=== PATIENT | female | born 1955 | race Caucasian/White ===

== ENCOUNTER → 2016-08-06 | Outpatient (CLI) | payer BC ==
[2015-11-27 10:26] VITALS: BP 144/78
[~2016-08-06] MED LIST: ASPI-482 PO; BUPR150T8 PO; CEPH500C PO; DULO30CA2 PO; ESOM40CA PO; ETOD400T PO; HYDR12.53 PO; OMEG1CAP2 PO; TRAM50TA PO; VALA1000 PO
--- NOTE | 2016-08-06 10:27 | KCIC ---
EXAM: Bone densitometry. HISTORY: Postmenopausal female presents for osteoporosis screening. FINDINGS: BMD: (g/cm2) - AP Spine Total (L1-L4): 1.600 - Total left Hip: 0.929 T-Score: - AP Spine Total (L1-L4): 5.0 - Total left Hip: -0.1 Z-Score: - AP Spine Total (L1-L4): 6.6 - Total left Hip: 1.0 World Health Organization criteria for BMD interpretation classify patients as Normal (T-score at or above -1.0), Osteopenic (T-score between -1.0 and -2.5), or Osteoporotic (T-score at or below -2.5). IMPRESSION: Normal bone mineral density. Electronically signed by: Deisy Oviedo (Aug 06, 2016 10:25:46)
== END | disposition home or self-care (01) ==
LOC: KCIC DEXA 09:22
PROVIDERS: ATTEND Family Medicine
DX: R29.890 Loss of height (principal); M85.88 Other specified disorders of bone density and structure, other site
CPT/HCPCS: 77080

== ENCOUNTER → 2016-10-08 | Outpatient (CLI) | payer BC ==
[2015-11-27 10:26] VITALS: BP 144/78
--- NOTE | 2016-10-08 10:46 | KCIC ---
Renal ultrasound Indication: Reason For Study Reason: FLANK PAIN, BILIRUB IN URINE / Spl. Instructions: / History: TECHNIQUE Multiple real-time grayscale sonographic images were obtained over the kidneys and bladder. FINDINGS The right kidney is normal in size measuring 10.8 x 4.5 x 4.5centimeters. There is no evidence for mass, hydronephrosis, or nephrolithiasis. The left kidney is normal in size measuring 10.9 x 6.4 x 5.9 centimeters. There is no evidence for mass, hydronephrosis, or nephrolithiasis. Urinary bladder is within normal limits. A gallstone is noted within the nondistended gallbladder. This is an incidental finding. IMPRESSION - Normal renal ultrasound. - Incidental note of cholelithiasis. Electronically signed by: Anthony Phillips (Oct 08, 2016 10:44:56)
--- NOTE | 2016-10-08 11:24 | KCIC ---
PROCEDURE Lumbar spine radiographs HISTORY Chronic low back pain, no recent injury COMPARISON None FINDINGS Three views of the lumbar spine are submitted. There is mild dextroscoliosis centered about L2-3. There is mild right lateral subluxation L3 relative to L4 and mild left lateral subluxation of L1 relative to L2. There is advanced degenerative disc disease at L1-L2 and also eccentric to the left at L2-3 and L3-4 and on the right at L4-5. There is multilevel spondylosis greatest at L1-2 and L2-3. Lumbar vertebral body stature is adequate. There is facet degenerative change greater inferiorly of the lumbar spine. There is atherosclerotic calcification of the abdominal aorta. IMPRESSION 1. There is multilevel lumbar degenerative disc disease and spondylosis greatest L1-L2 through L3-4. There is mild lumbar dextroscoliosis. Electronically signed by: Haroon Wilson MD (Oct 08, 2016 11:23:02)
== END | disposition home or self-care (01) ==
LOC: KCIC US 09:35
PROVIDERS: ATTEND Nurse Practitioner Family
DX: M54.5 Low back pain (principal); M51.36 Other intervertebral disc degeneration, lumbar region; M47.896 Other spondylosis, lumbar region; R10.9 Unspecified abdominal pain; K80.20 Calculus of gallbladder without cholecystitis without obstruction
CPT/HCPCS: 72100; 76770

== ENCOUNTER → 2017-01-17 | Outpatient (CLI) | payer BC ==
[2015-11-27 10:26] VITALS: BP 144/78
--- NOTE | 2017-01-17 16:24 | RAD ---
Examination: MRI of the right shoulder without contrast HISTORY: History of right shoulder pain after lifting, decreased range of motion COMPARISON: None available TECHNIQUE: Multiplanar, multisequence MR of the right shoulder were performed without contrast. FINDINGS: The long head of the biceps tendon is within the bicipital groove. The attachment of the long head of the biceps tendon to the superior labral anchor grossly appears intact. The attachment of the subscapularis tendon appears intact. There is a small focus of full-thickness tear identified in the anterior portion of the supraspinatus tendon, at its junction with the subscapularis, measuring 8.5 mm in transverse dimension with small amount of fluid extending into subacromial subdeltoid bursa. There is moderate tendinosis of the supraspinatus, infraspinatus tendon. There is increased signal identified in the superior labrum extending posteriorly with a small paralabral cyst extending deep to the labrum measuring 4.5 mm, best visualized on series 4 image 15. Moderate degenerative disease recommend clavicular joint. Acromion is type II. The humerus head is within the glenoid. The muscle bulk grossly appears unremarkable. There is obliteration of fat in the rotator interval. IMPRESSION: 1. Small focus of full-thickness tear of the supraspinatus tendon anteriorly at its junction with the subscapularis tendon with extension of fluid in the subacromial subdeltoid bursa. 2. Mild increased signal identified in the superior labrum extending posteriorly likely labral tear with possible small 4.5 mm paralabral cyst extending deep to the labrum. 3. Moderate degenerative changes acromioclavicular joint. 4. There is obliteration of fat in the rotator interval. Correlate for adhesive capsulitis. Electronically signed by: Shakir Faustin MD (01/17/2017 4:20 PM) [id number]
== END | disposition home or self-care (01) ==
LOC: MRI 14:48
PROVIDERS: ATTEND Physical Medicine & Rehabilitation
DX: M75.101 Unspecified rotator cuff tear or rupture of right shoulder, not specified as traumatic (principal); M19.011 Primary osteoarthritis, right shoulder; M75.01 Adhesive capsulitis of right shoulder
CPT/HCPCS: 73221

== ENCOUNTER → 2017-10-31 | Outpatient (CLI) | payer BC | END | disposition home or self-care (01) | LOC: KCIC MAMMO 10:50 | DX: Z12.31 Encounter for screening mammogram for malignant neoplasm of breast (principal); I10 Essential (primary) hypertension; E78.00 Pure hypercholesterolemia, unspecified | CPT/HCPCS: 77067 ==

== ENCOUNTER → 2017-11-08 | Outpatient (CLI) | payer BC | END | disposition home or self-care (01) | LOC: KCIC MAMMO 08:48 | DX: N64.89 Other specified disorders of breast (principal); R92.2 Inconclusive mammogram; R91.8 Other nonspecific abnormal finding of lung field; I10 Essential (primary) hypertension; E78.00 Pure hypercholesterolemia, unspecified | CPT/HCPCS: 76641; 77065 ==

== ENCOUNTER → 2017-11-08 | Outpatient (CLI) | payer BC | END | disposition home or self-care (01) | LOC: MRI 12:24 | DX: S46.011D Strain of muscle(s) and tendon(s) of the rotator cuff of right shoulder, subsequent encounter (principal); M19.011 Primary osteoarthritis, right shoulder; M25.711 Osteophyte, right shoulder; M62.58 Muscle wasting and atrophy, not elsewhere classified, other site; G89.29 Other chronic pain; X58.XXXD Exposure to other specified factors, subsequent encounter | CPT/HCPCS: 73221 ==

== ENCOUNTER → 2018-03-24 | Outpatient (CLI) | payer BC ==
[2015-11-27 10:26] VITALS: BP 144/78
[~2018-03-24] MED LIST changes: +GADOBUTROL 7.5 MMOL/7.5 ML VIAL INT ART ONE; +IOHEXOL 300 MG/ML 50 ML VIAL. INT ART ONE; +LIDOCAINE WITH 8.4% SOD BICARB 3 ML DISP.SYRIN. INJ ONE
--- NOTE | 2018-03-24 09:53 | RAD ---
Right shoulder injection using fluoroscopic guidance, prior to MRI. Indication: Right shoulder pain. History of previous right shoulder surgery. Technique: The procedure was explained to the patient as were potential risks. All questions were answered. Informed written consent was obtained. A timeout was performed which confirmed the name of the patient and the date of and the type of procedure and the side of the procedure. Allergies to medication and contrast reviewed. An appropriate skin rubi was made on the right shoulder using fluoroscopic guidance. The right shoulder was prepped and draped in the usual sterile manner. Following administration of 3 cc of 1% lidocaine for local anesthetic, a 22-gauge needle was advanced into the right glenohumeral joint from an anterior approach. Following negative aspiration, 20 cc of a solution of 10 cc Omnipaque 300 contrast, 10 cc normal saline, and 0. 2 cc gadolinium was injected intra-articularly under fluoroscopic observation without difficulty. The contrast confirmed intra-articular position of the needle. Fluoroscopic spot views were taken. The needle was removed. There was good hemostasis at the injection site. The patient left in stable condition without immediate complication. The patient was given postprocedural instructions, and instructed to contact us or the ER if there are any complications. Total fluoroscopic time: 0.4 minutes. Total fluoroscopic spot images: 7. There is contrast extravasation into the substance of the rotator cuff within the acromial humeral space consistent with at least a partial articular surface high-grade tear. Impression: Successful right shoulder joint injection. MRI to follow. At least a partial articular surface high-grade tear of the rotator cuff is evident. Electronically signed by: David Ybarra MD (03/24/2018 9:49 AM) [facility]
--- NOTE | 2018-03-24 12:58 | RAD ---
EXAM: MR arthrogram right shoulder DATE: 03/24/2018 9:45 AM COMPARISON: None INDICATION: WORSENING RIGHT SHOULDER PAIN, NO SX HX TECHNIQUE: Multiplanar multisequence MR imaging of the right shoulder was performed, including ABER view, following the administration of intra-articular gadolinium contrast. The arthrography will be reported in a separate report. FINDINGS: Iatrogenic distention of the right glenohumeral joint consistent with linear contrast injection. There is moderate AC joint degenerative changes with proliferative changes and associated effusion/edema. Type I acromion. There is distention of the subacromial subdeltoid bursa for full thickness rotator cuff tear described below. There is a full-thickness full width tear of the supra space and indent full-thickness, subtotal with tear of the infraspinous tendons at the greater tuberosity measuring approximately 3.2 cm in AP dimension. Retraction is seen to the level of the AC joint, just lateral to the glenoid. There is moderate increased signal and thickening of the residual intact infraspinatus fibers consistent with moderate tendinosis. Signal changes within the subscapularis are likely iatrogenic. There is moderate fatty atrophy of the supraspinous muscle belly. The posterior inferior labrum is diminutive with associated subchondral cyst consistent with prior labral surgery or tear. The long head biceps tendon is not visualized within the intra-articular portion suggesting particularly tenodesis or tear. Screw tracks are seen within the greater tuberosity. Chondral thinning within the superior humeral head. IMPRESSION: 1. Full-thickness full width tear of the supraspinatus tendon and full-thickness subtotal width tear of the infraspinatus tendon with retraction to the level of the glenoid. Moderate fatty atrophy of the supraspinatus muscle belly. 2. The intra-articular portion of the long head biceps tendon is not visualized suggesting hematemesis or tear 3. Acromioclavicular joint degenerative changes are seen. 4. Posterior inferior labral blunting with associated glenoid changes, possibly postsurgical or sequela of labral tear. Given smooth, well defined margins, favor postsurgical change. Electronically signed by: aCrlos A Dailey MD (03/24/2018 12:55 PM) [email or web address]
== END | disposition home or self-care (01) ==
LOC: RAD 08:49
PROVIDERS: ATTEND Orthopaedic Surgery
DX: M19.011 Primary osteoarthritis, right shoulder (principal); M75.111 Incomplete rotator cuff tear or rupture of right shoulder, not specified as traumatic; M62.511 Muscle wasting and atrophy, not elsewhere classified, right shoulder; I10 Essential (primary) hypertension; E78.00 Pure hypercholesterolemia, unspecified; I25.10 Atherosclerotic heart disease of native coronary artery without angina pectoris; Z90.710 Acquired absence of both cervix and uterus; Z87.891 Personal history of nicotine dependence
CPT/HCPCS: 73040; 73222; A9585; Q9967

== ENCOUNTER → 2018-05-23 | Outpatient (CLI) | payer BC ==
[2015-11-27 10:26] VITALS: BP 144/78
[~2018-05-23] MED LIST changes: -GADOBUTROL 7.5 MMOL/7.5 ML VIAL INT ART ONE; -IOHEXOL 300 MG/ML 50 ML VIAL. INT ART ONE; -LIDOCAINE WITH 8.4% SOD BICARB 3 ML DISP.SYRIN. INJ ONE
--- NOTE | 2018-05-23 12:11 | KCIC ---
Right breast diagnostic digital mammograms: Reason for examination: Follow-up exam. Comparison is made to previous studies dated 11/08/2017, 10/31/2017 and 06/28/2016. Interpretation was made with the benefit of CAD. The skin and nipple show no abnormalities. No abnormal axillary lymph nodes are seen. The breast parenchyma shows scattered fibroglandular density. (Breast density: Category B.) There continues to be some patchy asymmetry at the 10:00 C position of the right breast which has not changed. There are no new dominant masses, suspicious calcifications or architectural distortions. Some benign calcifications are present. Impression: Asymmetric density persists posterior laterally in the right breast. Ultrasound to follow. Right breast ultrasound: Comparison is made to previous study dated 11/08/2017. Ultrasound examination of the right breast was performed including the retroareolar and axillary regions. A 5 mm fibrocystic type lesion persists at the 9:30 position 5 cm from the nipple and has not shown interval change. There is some ductal ectasia in the retroareolar 11:00 and 6:00 positions with some minimal fibrocystic changes present. No abnormal appearing lymph nodes are seen in the right axilla. IMPRESSION: No change in the small fibrocystic lesion at the 9:30 position. Ductal ectasia in the retroareolar position with some minimal fibrocystic changes. No suspicious abnormality seen. Recommend 6 month follow-up ultrasound at the time of bilateral mammograms. BI-RADS Category 3: Probably Benign. "Our facility is accredited by the [employer] Mammography Program." This patient's information has been entered into a reminder system for the patient to be notified with the results of her examination and a target date for the next mammogram. Electronically signed by: Naomi Last MD (05/23/2018 12:07 PM) [place] [id number]
== END | disposition home or self-care (01) ==
LOC: KCIC MAMMO 08:56
PROVIDERS: ATTEND Family Medicine
DX: R92.8 Other abnormal and inconclusive findings on diagnostic imaging of breast (principal)
CPT/HCPCS: 76641; 77065

== ENCOUNTER → 2018-09-09 | Outpatient (CLI) | payer BC ==
[2015-11-27 10:26] VITALS: BP 144/78
[~2018-09-09] MED LIST changes: -HYDR12.53 PO; +HYDR12.575 PO
--- NOTE | 2018-09-09 15:20 | KCIC ---
EXAM: CT Chest without IV contrast CLINICAL HISTORY: Smoker, abnormality seen on prior chest radiograph. COMPARISON: None. TECHNIQUE: CT of the chest without intravenous contrast. Axial, coronal and sagittal reformatted images were generated. ---PQRS compliance statement - One or more of the following individualized dose reduction techniques were utilized for this study: 1. Automated exposure control 2. Adjustment of the mA and/or kV according to patient size 3. Use of iterative reconstruction technique--- FINDINGS: Lack of intravenous contrast limits evaluation of solid organs, vasculature, and lymph nodes. Chest: The heart is not enlarged. No pericardial effusion. Coronary artery calcifications are seen. Evaluation for lymphadenopathy limited on this noncontrast exam. No axillary lymphadenopathy. A prominent right hilar lymph node measures 1 x 0.8 cm. No lymphadenopathy by size criteria. No pleural effusion or pneumothorax. A 4 mm middle lobe lung nodule is seen (series 2 image 105). A 3 mm right fissural lung nodule (series 2 image 93) is seen. A right lower lobe calcified granuloma is seen. Visualized Upper abdomen: Calcified gallstones are seen within the gallbladder. Bones: Degenerative changes of the spine are seen. IMPRESSION: 1. 3-4 mm right lung nodules are seen. Per Fleischner Society guidelines for incidentally found solid nodules measuring less than 6 mm, no follow-up is necessary if patient is considered at low risk for lung cancer. If patient is considered to be at high risk, such as with history of smoking, then CT follow-up in about 12 months can be considered 2. No thoracic lymphadenopathy by size criteria. 3. Calcified gallstones are seen within the gallbladder. Electronically signed by: Carlos A Dailey MD (09/09/2018 3:17 PM) [facility]
== END | disposition home or self-care (01) ==
LOC: KCIC CT 11:19
PROVIDERS: ATTEND Family Medicine
DX: R91.8 Other nonspecific abnormal finding of lung field (principal); J84.10 Pulmonary fibrosis, unspecified; K80.20 Calculus of gallbladder without cholecystitis without obstruction; F17.210 Nicotine dependence, cigarettes, uncomplicated
CPT/HCPCS: 71250

== ENCOUNTER → 2018-11-11 | Outpatient (CLI) | payer BC ==
[2015-11-27 10:26] VITALS: BP 144/78
--- NOTE | 2018-11-11 10:57 | KCIC ---
Bilateral digital diagnostic mammogram and right breast ultrasound History: Follow-up of probably benign right breast fibrocystic lesions. Bilateral digital CC and MLO views were obtained with mammography . Computer aided detection was utilized with iCAD Second Look 7.2-H. Previous: Right breast ultrasound May 23, 2018 and November 08, 2017. Mammogram May 23, 2018 and priors. Mammogram: There are scattered fibroglandular densities (Level 2 density).There are no suspicious masses, suspicious microcalcifications or areas of architectural distortion. Asymmetry at the right outer breast posterior depth confirmed on the lateral exaggerated CC view as overlapping glandular tissue, stable, considered benign. Mild nodularity of the right central breast tissue is stable for several years considered benign. ULTRASOUND: Mild subareolar duct ectasia. Right breast 9:30 position 5 cm from the nipple demonstrates a stable 5 x 2 mm parallel circumscribed hypoechoic cystic focus back to November 2017. No suspicious abnormality. IMPRESSION: Negative bilateral mammogram. Stable fibrocystic change of the right outer breast since November 2017, considered probably benign. Attention on follow-up right breast sonography in one year is advised to document continued stability. Continue annual screening mammography. Patient information was entered into the [employer] reminder system with a target due date for the next screening mammogram. BI-RADS Category 3: Probably benign. If your mammogram demonstrates that you have dense breast tissue, which could hide abnormalities, and if you have other risk factors for breast cancer that have been identified, you might benefit from supplemental screening tests that may be suggested by your ordering physician. Dense breast tissue, in and of itself, is a relatively common condition. This information is not provided to cause undue concern, but rather to raise your awareness and to promote discussion with your physician regarding the presence of other risk factors, in addition to dense breast tissue. A report of your mammography results will be sent to you and your physician. You should contact your physician if you have any questions or concerns regarding this report. A mammogram does not have 100% sensitivity and therefore a negative imaging study should not delay further work up of a suspicious abnormality. "Our facility is accredited by the [employer] Mammography Program." Electronically signed by: William Morales MD (11/11/2018 10:54 AM) [email or web address]
== END | disposition home or self-care (01) ==
LOC: KCIC MAMMO 09:26
PROVIDERS: ATTEND Family Medicine
DX: N60.41 Mammary duct ectasia of right breast (principal); N64.89 Other specified disorders of breast
CPT/HCPCS: 76641; 77066

== ENCOUNTER → 2019-07-30 | Outpatient (CLI) | payer MEDICARE, BC ==
[2015-11-27 10:26] VITALS: BP 144/78
--- NOTE | 2019-07-30 16:35 | KCIC ---
CHEST PA LATERAL History: Cough Comparison: 09/09/2018 CT chest without contrast. Findings: Frontal and lateral views of the chest were obtained. The cardiomediastinal silhouette is normal. Pulmonary vasculature is normal. The lungs are clear. Calcific granulomas are present. No pleural effusion or pneumothorax is seen. There is no acute bone abnormality. Minimal convexity of the lower thoracic and lumbar spine noted. Degenerative disc space narrowing of the upper lumbar spine noted. IMPRESSION: No acute cardiopulmonary process. Electronically signed by: Angel Lowery MD (07/30/2019 4:33 PM) [facility]
== END | disposition home or self-care (01) ==
LOC: KCIC 10:54
PROVIDERS: ATTEND Family Medicine
DX: J84.10 Pulmonary fibrosis, unspecified (principal); M48.061 Spinal stenosis, lumbar region without neurogenic claudication
CPT/HCPCS: 71046

== ENCOUNTER → 2020-11-07 | Outpatient (CLI) | payer MEDICARE, BC ==
[2015-11-27 10:26] VITALS: BP 144/78
[~2020-11-07] MED LIST changes: -VALA1000 PO; +VALA10008 PO
--- NOTE | 2020-11-07 16:46 | KCIC ---
EXAM: CT Chest without IV contrast CLINICAL HISTORY: Reason: Pulmonary lung nodules follow up. Smoker 40 yrs. COMPARISON: 09/09/2018 TECHNIQUE: CT of the chest without intravenous contrast. Axial, coronal and sagittal reformatted imag es were generated. ---PQRS compliance statement - One or more of the following individualized dose reduction techniques were utilized for this study: 1. Automated exposure control 2. Adjustment of the mA and/or kV according to patient size 3. Use of iterative reconstruction technique--- FINDINGS: Lack of intravenous contrast limits evaluation of solid organs, vasculature, and lymph nodes. Chest: Thyroid is unremarkable. No mediastinal or hilar lymphadenopathy. No axillary lymphadenopathy. Calcif ied mediastinal and hilar lymph nodes are seen. Heart is not enlarged. Coronary calcifications are se en. 4 mm lung nodule is seen in the middle lobe (series 6 image 110). 3 mm fissural lung nodule (series 6 image 107). 3 mm middle lobe lung nodule (series 6 image 126). No pleural effusion or pneumothorax. Visualized Upper abdomen: Calcified gallstones are seen within the gallbladder. Moderate colonic stoo l content. Bones: Degenerative changes of the spine are seen. No aggressive osseous lesion is seen. IMPRESSION: Multiple right lung nodules are seen measuring up to 4 mm. Given 12 month stability, no further follo w-up is needed. Cholelithiasis Electronically signed by: Carlos A Dailey MD (11/07/2020 4:44 PM) [email or web address]
== END ==
LOC: KCIC CT 09:46
PROVIDERS: ATTEND Family Medicine
DX: R91.8 Other nonspecific abnormal finding of lung field (principal); K80.20 Calculus of gallbladder without cholecystitis without obstruction; Z87.891 Personal history of nicotine dependence
CPT/HCPCS: 71250

== ENCOUNTER → 2020-11-07 | Outpatient (CLI) | payer MEDICARE, BC ==
[2015-11-27 10:26] VITALS: BP 144/78
--- NOTE | 2020-11-07 10:57 | KCIC ---
Bilateral digital screening mammograms with 3-D tomosynthesis: Reason for examination: Routine screening. Comparison is made to previous studies dated back to 03/15/2015. Bilateral mammograms in CC and oblique projections were obtained with 2-D imaging and 3-D tomosynthes is imaging on a Siemens Inspiration unit and reviewed on the workstation. Interpretation was made wit h the benefit of CAD. The skin and nipples show no abnormalities. No abnormal axillary lymph nodes are seen. The breast par enchyma shows scattered fatty and fibroglandular density. (Breast density: Category B.) There are no dominant masses, suspicious calcifications or architectural distortion. Benign calcifications are pre sent. Impression: No evidence of malignancy. Recommend routine screening. BI-RAD Category 2: Benign. "Our facility is accredited by the [employer] Mammography Program." This patient's information has been entered into a reminder system for the patient to be notified wit h the results of her examination and a target date for the next mammogram. Electronically signed by: Naomi Last MD (11/07/2020 10:55 AM) [id number]
== END ==
LOC: KCIC MAMMO 09:41
PROVIDERS: ATTEND Family Medicine
DX: Z12.31 Encounter for screening mammogram for malignant neoplasm of breast (principal)
CPT/HCPCS: 77063; 77067

== ENCOUNTER → 2021-08-02 | Outpatient (CLI) | payer MEDICARE, BC ==
[2015-11-27 10:26] VITALS: BP 144/78
[~2021-08-02] MED LIST changes: -ETOD400T PO; +ETOD400T3 PO
--- NOTE | 2021-08-02 13:15 | KCIC ---
CT HEAD/BRAIN WO History: Reason: Nonintractable headache, pt. fell 07-17-21, struck back of head. No LOC. / Spl. Instr uctions: / History: Comparison: None. Technique: Noncontrast CT imaging was performed of the head. Exposure: One or more of the following individualized dose reduction techniques were utilized for thi s examination: 1. Automated exposure control 2. Adjustment of the mA and/or kV according to patient size 3. Use of iterative reconstruction technique. Findings: No intracranial hemorrhage. No mass effect. No hydrocephalus. Extra-axial spaces are unremarkable. Imaged orbits are unremarkable. Imaged paranasal sinuses and mastoid air cells are clear. No acute ca lvarial fracture. Impression: 1. No acute intracranial abnormality. Electronically signed by: Gus Junior DO (08/02/2021 1:13 PM) [facility]
== END ==
LOC: KCIC CT 12:18
PROVIDERS: ATTEND Family Medicine
DX: R51.9 Headache, unspecified (principal)
CPT/HCPCS: 70450